=== PATIENT | male | born 1960 | race Caucasian/White ===

== ENCOUNTER 2018-05-06 19:09 | Emergency (ER) | payer OTHER | END 2018-05-06 22:47 | disposition home or self-care (01) | LOC: FTE 19:09 | DX: E13.42 Other specified diabetes mellitus with diabetic polyneuropathy (principal); F17.210 Nicotine dependence, cigarettes, uncomplicated; Z79.84 Long term (current) use of oral hypoglycemic drugs | CPT/HCPCS: 99282; Z7502 ==